=== PATIENT | male | born 2000 | race Caucasian/White ===

== ENCOUNTER 2023-09-03 18:02 | Emergency (ER) | payer OTHER, SELFPAY ==
[2023-09-03 18:26] VITALS: BP 119/74; PULSE 63; RESP 16; TEMP 36.2; O2SAT 98; BMI 23.0
--- NOTE | 2023-09-03 18:43 | CRLHL7_ITS ---
For Patients: As a result of the Cures Act, medical imaging exams and procedure reports are released immediately into your electronic medical record. You may view this report before your referring provider. If you have questions, please contact your health care provider. Indication: Shoulder injury. Technique: Left shoulder 3 views. Comparison: None. Findings: Bones: Alignment is normal. No fractures or bone lesions. Joint spaces: Unremarkable. Soft tissues: Unremarkable. Impression: No sign of acute injury. Dictated by Shane Gardiner MD @ 09/03/2023 7:39:58 PM (Electronically Signed)
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
[2023-09-03] MEDS: IBUPROFEN 400 MG TABLET 800 MG PO (19:01)
--- OUTSIDE RECORDS SUMMARY | 2023-09-03 19:16 | XMS_ITS ---
Author Name RheaNadia mcknight Address [address] [place] [address] Organization [facility] Address [address] [place] [address] Care Team Providers Care Supervisor Of Operations Name Role Phone Nadia Wilkerson Unavailable [phone] PROBLEMS Unknown Problems ALLERGIES No Known Allergies ENCOUNTERS Encounter Location Date Diagnosis [facility] [address] [place] [address] Oct, Strep pharyngitis J02.0 [facility] [address] [facility] [address] [place] [address] Feb, [facility] [address] [facility] [address] [place] [id number] Feb, Bronchitis J40 [facility] [facility] [address] [place] [address] Feb, [facility] [address] [facility] [address] [place] [address] Feb, Cough R05 and COVID-19 ruled out Z03.818 [facility] [address] [place] [id number] Oct, Throat pain in pediatric patient R07.0 ; Other viral agents as the cause of diseases classified elsewhere B97.89 and Acute pharyngitis due to other specified organisms J02.8 IMMUNIZATIONS No Known Immunizations SOCIAL HISTORY Qualifiers Date Never Smoker REASON FOR REFERRAL FUNCTIONAL STATUS PLAN OF CARE VITAL SIGNS Temperature 98.2 degrees Fahrenheit Temperature 98.3 degrees Fahrenheit Temperature 98.2 degrees Fahrenheit Heart Rate 73 /min 2020-10-20 Heart Rate 63 /min 2020-02-28 Heart Rate 72 /min 2020-02-28 Heart Rate 76 /min 2016-11-10 Height 70 in 2020-10-20 Height 70 in 2020-02-28 Height 5'8 in 2020-02-28 Height 5'8 in 2016-11-10 Weight 155 lbs 2020-10-20 Weight 150 lbs 2020-02-28 Weight 134 lbs 2016-11-10 BMI 22.24 kg/m2 2020-10-20 BMI 21.52 kg/m2 2020-02-28 BMI 26.17 kg/m2 2016-11-10 Respiratory Rate 16 /min 2020-02-28 Respiratory Rate 14 /min 2016-11-10 Oximetry 98 % 2020-10-20 Oximetry 99 % 2020-02-28 Oximetry 97 % 2020-02-28 Oximetry 97 % 2016-11-10 Blood pressure systolic 129 mm Hg Blood pressure diastolic 79 mm Hg 2020-10 MEDICATIONS Medication Instructions Dosage Frequency Start Date End Date Duration Status Albuterol Sulfate HFA 108 (90 Base) MCG/ACT Inhalation every 6 hrs 1-2 puff as needed 6h Feb, 30 days Not-Takin g Azithromycin 250 MG Orally once a day 2 tablets on day one, and 1 tablet on days 2-5 24h Feb, 5 days Not-Takin g PROzac Active SEROquel Not-Edgar in g Lexapro Not-Taki n g Truvada Active Flonase Allergy Relief 50 MCG/ACT Nasally Once a day 1 spray in each nostril 24h Feb, 7 days Not-Takin g Amoxicillin 500 MG Orally BID 1 capsule 12h Oct, 10 days Active PROCEDURES Procedure Date Ordered Result Body Site CLIA-Waived Strep Test Oct 20, 2020 Infectious agent detection b y nucleic acid (DNA or RNA); severe acute respiratory syndrome coronavirus 2 (SARS-CoV-2) (Coronavirus disease [COVID-19]), amplified probe technique February 28, 2020 SPECIMEN HANDLING Oct 20, 2020 STREP A ASSAY W/OPTIC Nov 10, 2016 Virtual Visit February 28, 2020 RESULTS Name Result Date Reference Range Rapid Strep Strep Positive COVID-19 Molecular Nucleic A neda Amplification Test (NAAT) COVID-19 neg REASON FOR VISIT sore throat, c/o sore throat since yesterday. temp of 101 F on saturday night, Courtesy Call Back, cough, cough, coughing fits, sinus congestion, runny nose x 1 month, Courtesy Call Back, cough x 1 month, sore throat Insurance Providers Health Insurance Type Health Plan Insurance Address Health Plan Insurance Phone Health Plan Insurance Name Health Plan Coverage Dates Member ID Patient Relationship to Subscriber Patient Address Patient Phone Patient Name Patient Date of Subscriber ID Subscriber Name Subscriber Date of Group No [employer] [address] [facility] [address] Aeemerita Schroeder [id number] OR[place]O DILLON [id number]
== END 2023-09-03 19:15 | disposition home or self-care (01) ==
LOC: ED 19:14
PROVIDERS: Emergency Provider Family Medicine
DX: S40.212A Abrasion of left shoulder, initial encounter (principal); V18.2XXA Unspecified pedal cyclist injured in noncollision transport accident in nontraffic accident, initial encounter
CPT/HCPCS: 73030; 99283; A9270